=== PATIENT | male | born 1980 | race Caucasian/White ===

== ENCOUNTER 2016-08-18 20:12 | Emergency (ER) | payer BC ==
[2016-08-18] MEDS ORDERED: ETOMIDATE 2 MG/ML 10 ML VIAL IVP STA ×2 (20:19→21:48)
[2016-08-18] MEDS ORDERED: SODIUM CHLORIDE 0.9% 1,000 ML IV SCH (20:30)
--- NOTE | 2016-08-18 20:31 | ED ---
General Adult HPI - General Stated complaint: L Knee Dislocation Time Seen by Provider: 08/18/16 20:14 Source: patient, EMS, RN notes reviewed - History of Present Illness Initial comments: Chief complaint history of present illness this is a 36-year-old male who while playing baseball dislocated his left patella. This happened one time years ago. As happened bilaterally in the past as well - Related Data Previous Rx's Medication Instructions Recorded Ibuprofen [Motrin] 800 mg PO Q8H PRN #20 tab 08/18/16 Allergies Allergy/AdvReac Type Severity Reaction Status Date / Time No Known Allergies Allergy Verified 08/18/16 20:35 Review of Systems ROS Statement: Those systems with pertinent positive or pertinent negative responses have been documented in the HPI. review of systems no other complaints of any other problems other than painful dislocated left patella. All systems are reviewed. Past medical problems previous dislocation of both patellas in the past. Denies any ALLERGIES or significant medical problems. ROS Other: All systems not noted in ROS Statement are negative. General Exam - General Exam Comments Initial Comments: General: The patient is awake and alert, presents by EMS because of dislocated left patella.. no other complaints other than pain to his left knee Musculoskeletal: laterally dislocated patella. Patient's leg is fully extended. Too painful to reduce at this time without IV sedation. Patient denies any ALLERGIES. Procedures - Procedures Initial comment: Procedure; patient signed consent for conscious sedation and reduction of a dislocated left patella. At bedside were ase certified technician ER doctor and ER nurse. The patient was monitored before during and after blood pressure pulse ox and rhythm strip monitor. Patient was initially given 15 mg of etomidate followed by 5 more than adequate sedation for reduction of his dislocated left patella. Postreduction film is pending. Patient was given 0.5 IV Dilaudid after procedure. Patient answers questions appropriately soon after procedure. Total length of procedure [address] Mckeon Medical Decision Making - Medical Decision Making medical decision making x-ray of the left knee shows dislocated left patella. X-ray reviewed by radiologist's final impression is there is evidence for lateral dislocation of the patella. No fractures seen. As read by Dr. Patel The patient will be referred on to on-call orthopedic surgeon Dr. Abdiel Walter for physical therapy. Advised not to squat in such a way as to increased risk of reoccurring patellar dislocations. Disposition Clinical Impression: Dislocation of patella, left, closed Disposition: HOME SELF-CARE Condition: Good Instructions: Patellar Dislocation (ED) Additional Instructions: Ice rest, wear her patella stabilizing brace. Follow-up with on-call orthopedic surgeon Dr. Abdiel Walter for physical therapy. Take ibuprofen 800 mg for pain Prescriptions: Ibuprofen [Motrin] 800 mg PO Q8H PRN #20 tab PRN Reason: Pain Referrals: None,Stated [Primary Care Provider] - 1-2 days Time of Disposition: 21:53
[2016-08-18 20:33] VITALS: TEMP 99.1
--- NOTE | 2016-08-18 21:09 | XR ---
EXAMINATION TYPE: XR knee limited LT DATE OF EXAM: 08/18/2016 COMPARISON: NONE HISTORY: Pain TECHNIQUE: 2 views FINDINGS: There is lateral positioning of the patella on the frontal view. I see no fracture. There i s a small metallic density above the patella on the lateral view that is probably an artifact. I see no definite joint effusion. IMPRESSION: There is evidence for lateral dislocation of the patella. No fracture seen.
[2016-08-18] MEDS ORDERED: HYDROmorphone 1 MG/ML 1 ML SYRINGE IVP STA (21:27)
[2016-08-18 22:18] VITALS: PULSE 98; RESP 16
[2016-08-18 23:00] VITALS: BP 117/57
== END 2016-08-18 22:58 | disposition home or self-care (01) ==
LOC: EC 20:12
DX: S83.005A Unspecified dislocation of left patella, initial encounter (principal); X58.XXXA Exposure to other specified factors, initial encounter; Y93.64 Activity, baseball
CPT/HCPCS: 99283; 27560; 99152; 99153; 96374; 73560; J1170

== ENCOUNTER 2019-01-30 11:28 | Emergency (ER) | payer OTHER, BC ==
[2019-01-30] MEDS ORDERED: DIPH,PERTUS(ACELL)TETVAC-LF 0.5 ML VIAL IM ONE (12:00)
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
[2019-01-30 13:05] VITALS: BP 128/70; PULSE 78; RESP 16; TEMP 98.4
== END 2019-01-30 13:04 | disposition home or self-care (01) ==
LOC: EC 11:28
DX: S00.01XA Abrasion of scalp, initial encounter (principal); M54.2 Cervicalgia; Z23 Encounter for immunization; V49.49XA Driver injured in collision with other motor vehicles in traffic accident, initial encounter; Y93.89 Activity, other specified; Y92.410 Unspecified street and highway as the place of occurrence of the external cause
CPT/HCPCS: 70450; 72125; 90471; 90715; 99284